=== PATIENT | female | born 1960 | race African-American/Black ===

== ENCOUNTER 2019-08-19 11:55 | Emergency (ER) | payer MEDICAID ==
[~2019-08-19] VITALS: Ht 170.2 cm; Wt 120.2 kg
[2019-08-19] MEDS ORDERED: NKM (12:07)
--- NOTE | 2019-08-19 12:10 | NUR ---
ED Nurse Note: PT walked in from home c/o chest pain since last night, pain level 7-8/10. Pt aaox4, no respiratory distress on room air, saturating 100%. Pt placed in gown, rn managed care and cont. pulse ox. IV on right AC started, blood collected. EKG done by police service technician. Pt's mother at bedside. Will continue to monitor patient.
[2019-08-19 12:13] VITALS: BP 150/72
--- NOTE | 2019-08-19 12:28 | NUR ---
ED Nurse Note: Blood and urine sample sent down to lab.
--- NOTE | 2019-08-19 12:29 | NUR ---
ED Nurse Note: PA at bedside.
[2019-08-19 12:40] LABS: APPEARANCE,URINE CLEAR; BILIRUBIN, URINE NEGATIVE (NEGATIVE); COLOR,URINE PALE YELLOW; EOSINOPHILS % (AUTO) 1.9 % (0.0-3.0); GLUCOSE, URINE (UA) NEGATIVE (NEGATIVE); HEMATOCRIT 42.5 % (37.0-47.0); HEMOGLOBIN 13.4 G/DL (12.0-16.0); KETONES,URINE NEGATIVE (NEGATIVE); LEUKOCYTE ESTERASE ,URINE 3+ (NEGATIVE); LYMPHOCYTES % (AUTO) 29.2 % (20.0-45.0); MEAN CORPUSCULAR VOLUME 90 FL (80-99); NEUTROPHILS % (AUTO) 62.8 % (45.0-75.0); NITRITE,URINE NEGATIVE (NEGATIVE); PH,URINE 6 (4.5-8.0); PLATELET COUNT 321 K/UL (150-450); PROTEIN,URINE NEGATIVE (NEGATIVE); RED BLOOD COUNT 4.73 M/UL (4.20-5.40); RED CELL DISTRIBUTION WIDTH 13.3 % (11.6-14.8); UROBILINOGEN,URINE NORMAL MG/DL (0.0-1.0); WHITE BLOOD COUNT 7.6 K/UL (4.8-10.8)
--- NOTE | 2019-08-19 12:40 | Emergency Room Report ---
History of Present Illness General Chief Complaint: Chest Pain Source: Patient Present Illness HPI 59-year-old female with no significant past medical history other than heavy tobacco smoke and heavy alcohol intake on a weekly basis, here complaining of 1 day of sudden onset of chest pain that started at rest yesterday. Denies pain radiation, tingling and numbness. Complains of headache and minimal dizziness however denies blurred vision. Patient sitting comfortably with stable vital signs with blood pressure slightly elevated rating at 150/72. Patient denies history of hypertension diabetes. Denies abdominal pain, nausea vomiting. Patient reports that she consumes a lot of spicy and acidic food. Reports that last night she had a lot of alcohol as well as tobacco smoke. Denies urinary symptoms, fever and chills has not taken any medication other than Tylenol for symptom relief. Patient is currently not taking any medication on a daily basis. Patient denies unilateral generalized weakness, denies history of MA, CVA, TIA in his family and for herself. Allergies: Coded Allergies: No Known Allergies (Unverified , 08/19/19) Patient History Past Medical History: see triage record Past Surgical History: unable to obtain Pertinent Family History: none Social History: Reports: smoking - tobacco, alcohol use - 5-6 drinks weekly Now: No Immunizations: UTD Reviewed Nursing Documentation: PMH: Agreed; PSxH: Agreed Nursing Documentation-PMH Past Medical History: No Stated History Review of Systems All Other Systems: negative except mentioned in HPI Physical Exam Vital Signs Date Time Temp Pulse Resp B/P (MAP) Pulse Ox O2 Delivery O2 Flow Rate FiO2 08/19/19 12:04 98.1 85 20 150/72 (98) 99 Room Air Sp02 EP Interpretation: reviewed, normal General Appearance: no apparent distress, alert, GCS 15, non-toxic Head: normocephalic, atraumatic Eyes: bilateral eye normal inspection, bilateral eye PERRL ENT: hearing grossly normal, normal pharynx, no angioedema, normal voice Neck: full range of motion, supple, no carotid bruits, supple/symm/no masses Respiratory: chest non-tender, lungs clear, normal breath sounds, no rhonchi, no wheezing, speaking full sentences Cardiovascular #1: regular rate, rhythm, no edema, no murmur Cardiovascular #2: 2+ carotid (R), 2+ carotid (L) Gastrointestinal: normal bowel sounds, non tender, soft, non-distended, no guarding, no rebound Rectal: deferred Genitourinary: normal inspection, no CVA tenderness Musculoskeletal: back normal, gait/station normal, normal range of motion, non- tender, calf tenderness Neurologic: alert, oriented x3, responsive, motor strength/tone normal, sensory intact, speech normal Psychiatric: judgement/insight normal, memory normal, mood/affect normal, no suicidal/homicidal ideation Skin: no rash Lymphatic: no adenopathy Medical Decision Making PA Attestation All diagnoses and treatment plans were reviewed and discussed with my supervising physician Dr. Butler Diagnostic Impression: Primary Impression: Chest pain Additional Impressions: GERD (gastroesophageal reflux disease) UTI (urinary tract infection) ER Course 59-year-old female with no significant past medical history other than heavy tobacco smoke and heavy alcohol intake on a weekly basis, here complaining of 1 day of sudden onset of chest pain that started at rest yesterday. Denies pain radiation, tingling and numbness. Complains of headache and minimal dizziness however denies blurred vision. Patient sitting comfortably with stable vital signs with blood pressure slightly elevated rating at 150/72. Patient denies history of hypertension diabetes. Denies abdominal pain, nausea vomiting. Patient reports that she consumes a lot of spicy and acidic food. Reports that last night she had a lot of alcohol as well as tobacco smoke. Denies urinary symptoms, fever and chills has not taken any medication other than Tylenol for symptom relief. Patient is currently not taking any medication on a daily basis. Patient denies unilateral generalized weakness, denies history of MA, CVA, TIA in his family and for herself. Ddx considered but are not limited to: MA, Angina, COPD, GERD, Vital signs: are WNL, pt. is afebrile H&PE are most consistent with chest pain, gerd, UTI ORDERS: EKG, Chest XR, cardiac labs(troponin, CBC, CMP, BNP), tylenol, omeprazole, macrobid ED INTERVENTIONS:NS bolus, pepcid DISCHARGE: At this time pt. is stable for d/c to home. Will provide printed patient care instructions, and any necessary prescriptions. Care plan and follow up instructions have been discussed with the patient prior to discharge. Follow-up with primary care provider also have your primary doctor send you to a small business sales representative for further assessment of chest pain avoid smoking, avoid eating spicy and acidic food if worsening symptoms return to emergency room. At this time no signs of acute myocardial infarction is noted your cardiac enzymes are within normal limits EKG Diagnostic Results Rate: normal Rhythm: NSR ST Segments: no acute changes Other Impression No acute ST changes Chest X-Ray Diagnostic Results Chest X-Ray Diagnostic Results : Chest X-Ray Ordered: Yes # of Views/Limited/Complete: 1 View Indication: Chest Pain EP Interpretation: Yes PA Xray: Interpretation reviewed, by supervising MD, and agrees with findings. Interpretation: no consolidation, no effusion, no pneumothorax Impression: No acute disease Electronically Signed by: Jaclyn Heart PA-C Last Vital Signs Date Time Temp Pulse Resp B/P (MAP) Pulse Ox O2 Delivery O2 Flow Rate FiO2 08/19/19 12:13 98.1 90 20 150/72 99 Room Air Disposition: HOME, SELF-CARE Condition: Stable Scripts Nitrofurantoin Monohyd/M-Cryst* (MACROBID 100 MG*) 100 Mg Capsule 100 MG ORAL EVERY 12 HOURS for 7 Days, #14 CAP Prov: Jaclyn Ngo 08/19/19 Acetaminophen* (TYLENOL EXTRA STRENGTH*) 500 Mg Tablet 500 MG ORAL Q6H PRN for Mild Pain/Temp > 100.5, #30 TAB 0 Refills Prov: Jaclyn Ngo 08/19/19 Omeprazole (OMEPRAZOLE) 20 Mg Tablet.dr 20 MG ORAL DAILY, #30 TAB Prov: Jaclyn Ngo 08/19/19 Patient Instructions: Food Choices for Gastroesophageal Reflux Disease, Adult, Heartburn, Nonspecific Chest Pain, Urinary Tract Infection, [id number] Additional Instructions: Follow-up with primary care provider also have your primary doctor send you to a small business sales representative for further assessment of chest pain avoid smoking, avoid eating spicy and acidic food if worsening symptoms return to emergency room. At this time no signs of acute myocardial infarction is noted your cardiac enzymes are within normal limits Jaclyn Ngo Aug 19, 2019 12:40
[2019-08-19 12:49] LABS: INR 0.9 (0.9-1.1)
--- NOTE | 2019-08-19 12:52 | NUR ---
ED Nurse Note: Additional blood works ordered by IVANA, called lab for confirmation.
--- NOTE | 2019-08-19 12:55 | NUR ---
ED Nurse Note: Xray at bedside.
[2019-08-19 12:56] LABS: ANION GAP 7 mmol/L (5-15); BLOOD UREA NITROGEN 18 mg/dL (7-18); CALCIUM 8.8 MG/DL (8.5-10.1); CARBON DIOXIDE 26 MMOL/L (21-32); CHLORIDE 110 MMOL/L (98-107); CREATININE 1.3 MG/DL (0.55-1.30); POTASSIUM 4.2 MMOL/L (3.5-5.1); SODIUM 143 MMOL/L (136-145)
[2019-08-19 13:15] LABS: ALANINE AMINOTRANSFERASE 21 U/L (12-78); ALBUMIN/GLOBULIN RATIO 0.8 (1.0-2.7); ALKALINE PHOSPHATASE 95 U/L (46-116); ASPARTATE AMINO TRANSFERASE 18 U/L (15-37); BILIRUBIN,TOTAL 0.2 MG/DL (0.2-1.0); CKMB 1.8 NG/ML (0.0-3.6); CREATINE KINASE 179 U/L (26-308)
[2019-08-19 13:28] VITALS: BP 129/77
[2019-08-19] MEDS ORDERED: NITROFURANTOIN100 M2 ORAL (13:37)
[2019-08-19] MEDS ORDERED: TYLENOL EXTRA500 MG ORAL (13:37)
[2019-08-19] MEDS ORDERED: OMEPRAZOLE20 M3 ORAL (13:37)
--- NOTE | 2019-08-19 14:10 | NUR ---
ER DISCHARGE NOTE: Patient is cleared to be discharged per ERMD, pt is aox4, on room air, with stable vital signs. pt was given dc and prescription instructions, pt was able to verbalize understanding, pt id band and iv site removed without complications. pt is able to ambulate with steady gait accompanied by parent. pt took all belongings.
[2019-08-19 14:16] VITALS: BP 130/83
--- NOTE | 2019-08-19 14:22 | Diagnostic Imaging Report ---
Indication: Cough Technique: One view of the chest Comparison: none Findings: Lungs and pleural spaces are clear. The heart size is normal Impression: Negative
== END 2019-08-19 14:10 | disposition home or self-care (01) ==
LOC: EMR 12:50
DX: R07.9 Chest pain, unspecified (principal); K21.9 Gastro-esophageal reflux disease without esophagitis; N39.0 Urinary tract infection, site not specified; F17.200 Nicotine dependence, unspecified, uncomplicated
CPT/HCPCS: 36415; 71045; 80053; 80329; 81003; 82550; 82553; 83880; 84484; 85025; 85610; 85730; 86850; 86900; 86901; 93005; 96361; 96374; S0028; Z7502; 99284